=== PATIENT | male | born 1965 ===

== ENCOUNTER 2021-05-05 12:33 | Inpatient (IN) | payer OTHER ==
[2021-05-05 12:53] VITALS: BMI 22.6
[2021-05-05] MEDS ORDERED: MAG HYDROX/AL HYDROX/SIMETH 30 ML UNIT-DOSE CUP PO PRN (14:13)
[2021-05-05] MEDS ORDERED: MAGNESIUM CITRATE 300 ML BOTTLE PO PRN (14:13)
[2021-05-05] MEDS ORDERED: ONDANSETRON *ODT* 4 MG TABLET SL PRN (14:13)
[2021-05-05] MEDS ORDERED: NICOTINE 10 MG CARTRIDGE (INHALER) IH PRN (14:13)
[2021-05-05] MEDS ORDERED: NICOTINE POLACRILEX 2 MG GUM BUC PRN (14:13)
[2021-05-05] MEDS ORDERED: ACETAMINOPHEN 325 MG TABLET (FP) PO PRN ×2 (14:13)
[2021-05-05] MEDS ORDERED: MAGNESIUM HYDROX 2400MG/30ML ORAL SUSPENSION 30 ML CUP PO PRN (14:13)
[2021-05-05] MEDS ORDERED: BISMUTH SUBSALICYLATE 524 MG/30 ML PO PRN (14:13)
[2021-05-05] MEDS ORDERED: cloNIDine HCL 0.1 MG TABLET PO PRN (14:13)
[2021-05-05] MEDS ORDERED: MENTHOL/PHENOL 1 EACH UD MM PRN (14:13)
[2021-05-05] MEDS: diazePAM 5 MG TABLET PO PRN (15:41)
[2021-05-05] MEDS ORDERED: methaDONE HCL 10 MG TABLET (FOR DETOX USE ONLY) PO ONE (16:00)
[2021-05-05] MEDS: hydrOXYzine PAMOATE 25 MG CAPSULE (FP) PO SCH ×2 (19:36→22:43)
[2021-05-05] MEDS: MELATONIN 5 MG TABLETS PO SCH (22:43)
[2021-05-05] MEDS: TOLNAFTATE 1% CREAM 15 GM TUBE TP SCH (22:44)
[2021-05-05] MEDS: THIAMINE HCL 100 MG TABLET (FP) PO SCH (22:47)
[2021-05-06] MEDS: hydrOXYzine PAMOATE 25 MG CAPSULE (FP) PO SCH ×5 (07:11→22:29)
[2021-05-06] MEDS ORDERED: methaDONE HCL 10 MG TABLET (FOR DETOX USE ONLY) ONE (09:45)
[2021-05-06 10:23] LABS: HEMOGLOBIN 11.6 GM/dL (11.7-16.9); MCH 28.8 pg (25.7-33.7); MCHC 32.3 g/dl (32.0-35.9); MEAN CELL VOLUME 89.3 fl (80-96); MEAN PLT VOLUME 8.3 fl (7.5-11.1); PLATELET COUNT 196 10^3/uL (134-434); RBC 4.03 M/mm3 (4.00-5.60); RDW 15.7 % (11.9-15.9); WHITE BLOOD COUNT 3.6 K/mm3 (4.0-10.0)
[2021-05-06 10:33] LABS: CALCIUM 8.4 mg/dL (8.5-10.1)
[2021-05-06 10:34] LABS: BLOOD UREA NITROGEN 21.3 mg/dL (7-18)
[2021-05-06] MEDS: METHOCARBAMOL 500 MG TABLET PO PRN ×2 (10:34→18:21)
[2021-05-06] MEDS: diazePAM 5 MG TABLET PO PRN ×3 (10:34→22:29)
[2021-05-06] MEDS: PRENATAL VITAMINS W/ FOLIC ACID TABLET (FP) PO SCH (10:34)
[2021-05-06] MEDS: NICOTINE 14 MG/24 HOURS TOPICAL PATCH TD SCH (10:35)
[2021-05-06 10:36] LABS: CREATININE 0.7 mg/dL (0.55-1.3)
[2021-05-06 10:38] LABS: BILIRUBIN,TOTAL 0.5 mg/dL (0.2-1); TOT PROT 5.9 g/dl (6.4-8.2)
[2021-05-06] MEDS: TOLNAFTATE 1% CREAM 15 GM TUBE TP SCH (10:38)
[2021-05-06] MEDS: THIAMINE HCL 100 MG TABLET (FP) PO SCH (22:29)
[2021-05-06] MEDS: MELATONIN 5 MG TABLETS PO SCH (22:29)
[2021-05-07] MEDS: TOLNAFTATE 1% CREAM 15 GM TUBE TP SCH ×3 (04:05→22:16)
[2021-05-07] MEDS: METHOCARBAMOL 500 MG TABLET PO PRN (06:00)
[2021-05-07] MEDS: hydrOXYzine PAMOATE 25 MG CAPSULE (FP) PO SCH ×5 (06:00→22:54)
[2021-05-07] MEDS ORDERED: methaDONE HCL 10 MG TABLET (FOR DETOX USE ONLY) PO ONE (10:00)
[2021-05-07] MEDS: PRENATAL VITAMINS W/ FOLIC ACID TABLET (FP) PO SCH (10:35)
[2021-05-07] MEDS: diazePAM 5 MG TABLET PO PRN ×2 (10:36→17:38)
[2021-05-07] MEDS: NICOTINE 14 MG/24 HOURS TOPICAL PATCH TD SCH (10:37)
[2021-05-07] MEDS: IBUPROFEN 400 MG TABLET (FP) PO PRN (17:40)
[2021-05-07] MEDS: THIAMINE HCL 100 MG TABLET (FP) PO SCH (22:54)
[2021-05-07] MEDS: MELATONIN 5 MG TABLETS PO SCH (22:55)
[2021-05-08] MEDS: hydrOXYzine PAMOATE 25 MG CAPSULE (FP) PO SCH ×5 (06:28→23:05)
[2021-05-08] MEDS ORDERED: methaDONE HCL 10 MG TABLET (FOR DETOX USE ONLY) ONE (10:05)
[2021-05-08] MEDS: diazePAM 5 MG TABLET PO PRN (10:48)
[2021-05-08] MEDS: METHOCARBAMOL 500 MG TABLET PO PRN (10:48)
[2021-05-08] MEDS: PRENATAL VITAMINS W/ FOLIC ACID TABLET (FP) PO SCH (10:48)
[2021-05-08] MEDS: NICOTINE 14 MG/24 HOURS TOPICAL PATCH TD SCH (10:49)
[2021-05-08] MEDS: TOLNAFTATE 1% CREAM 15 GM TUBE TP SCH ×2 (10:52→23:05)
[2021-05-08] MEDS: THIAMINE HCL 100 MG TABLET (FP) PO SCH (23:05)
[2021-05-08] MEDS: MELATONIN 5 MG TABLETS PO SCH (23:05)
[2021-05-09] MEDS: hydrOXYzine PAMOATE 25 MG CAPSULE (FP) PO SCH ×5 (05:51→23:09)
[2021-05-09] MEDS ORDERED: methaDONE HCL 10 MG TABLET (FOR DETOX USE ONLY) PO ONE (10:00)
[2021-05-09] MEDS: METHOCARBAMOL 500 MG TABLET PO PRN (10:37)
[2021-05-09] MEDS: PRENATAL VITAMINS W/ FOLIC ACID TABLET (FP) PO SCH (10:37)
[2021-05-09] MEDS: NICOTINE 14 MG/24 HOURS TOPICAL PATCH TD SCH (10:37)
[2021-05-09] MEDS: TOLNAFTATE 1% CREAM 15 GM TUBE TP SCH ×2 (10:38→23:09)
[2021-05-09] MEDS: MELATONIN 5 MG TABLETS PO SCH (23:09)
[2021-05-09] MEDS: THIAMINE HCL 100 MG TABLET (FP) PO SCH (23:10)
[2021-05-10] MEDS: hydrOXYzine PAMOATE 25 MG CAPSULE (FP) PO SCH (06:27)
[2021-05-10] MEDS: IBUPROFEN 400 MG TABLET (FP) PO PRN (06:28)
[2021-05-10 09:41] VITALS: BP 125/96; PULSE 84; TEMP 98.2
[2021-05-10] MEDS: NICOTINE 14 MG/24 HOURS TOPICAL PATCH TD SCH (10:22)
[2021-05-10] MEDS: PRENATAL VITAMINS W/ FOLIC ACID TABLET (FP) PO SCH (10:23)
[2021-05-10] MEDS: TOLNAFTATE 1% CREAM 15 GM TUBE TP SCH (10:23)
== END 2021-05-10 10:40 | disposition home or self-care (01) | DRG 773 ==
LOC: YASAS 12:33 → Y6N 14:56
PROVIDERS: ADMIT Allergy & Immunology; ATTEND Allergy & Immunology
PROC: HZ2ZZZZ Detoxification Services for Substance Abuse Treatment (ICD-10-PCS; principal; 2021-05-05)
DX: F11.23 Opioid dependence with withdrawal (principal); F14.20 Cocaine dependence, uncomplicated; F17.210 Nicotine dependence, cigarettes, uncomplicated; D72.819 Decreased white blood cell count, unspecified; B35.3 Tinea pedis; R79.89 Other specified abnormal findings of blood chemistry; Z86.11 Personal history of tuberculosis; Z56.0 Unemployment, unspecified; Z59.00 Homelessness unspecified
CPT/HCPCS: 36415; 71046-TC-FY; 80053; 85027; 86780; 93005; 93010; C9803; U0003; U0005